=== PATIENT | female | born 1970 | race Caucasian/White ===

== ENCOUNTER 2020-07-26 16:38 | Outpatient (REF) | payer BC, SELFPAY ==
--- NOTE | ~2020-07-26 | XR_ITS ---
EXAMINATION: XR CHEST CLINICAL INFORMATION: Cough COMPARISON: None TECHNIQUE: 2 views of the chest were obtained. FINDINGS: No significant abnormality is noted involving the heart, lungs, mediastinum, bony thorax or soft tissues. 5 mm calcified granuloma in the periphery of the left upper lobe. XR/XR chest 2V IMPRESSION: No acute abnormality of the chest.
== END 2020-07-26 16:39 | disposition home or self-care (01) ==
LOC: HO.HMGCX 16:38
PROVIDERS: Visit Provider Hospitalist
DX: R05 Cough (principal)
CPT/HCPCS: 71046